=== PATIENT | male | born 1970 | race Asian ===

== ENCOUNTER 2025-02-15 23:03 | Emergency (ER) | payer MEDICAID, SELFPAY ==
[2025-02-15 23:08] VITALS: BMI 64.4
[2025-02-15 23:15] VITALS: BP 153/95; PULSE 84; RESP 16; TEMP 36.9; O2SAT 96
--- NOTE | 2025-02-15 23:27 | EDNOTE_ITS ---
Upper Respiratory Inf. RME/HPI General Chief Complaint: Nausea/Vomiting/Diarrhea Stated Complaint: NV FEVER DIZZINESS Time Seen by Provider: 02/15/25 23:22 Arrival date/time: 02/15/25 23:03 RME / HPI RME / HPI Narrative: DR. RICO MAIN ED EVALUATION: 54 y/o male with Hx of Seasonal Allergies presents to ED c/o severe cough and 1 episode of vomiting x approximately 4 hours. Also reports runny nose, headache, backache, and chills. Denies any fever. Aslo i any history of tobacco or alcohol use. Related Data Previous Rx's ?Medication ?Instructions ?Recorded albuterol sulfate 90 mcg/actuation 2 puff inhalation Q ID PRN 02/16/25 aerosol inhaler shortness of breath or wheez ing #6.7 grams Review of Systems Review of Systems Systems Reviewed: All systems reviewed, normal except as documented ED Exam Narrative Physical exam: Generally patient is alert and in no obvious distress, heart regular rate and rhythm, lungs clear to auscultation equal bilaterally, abdomen soft bowel sounds present's and nontender, extremities show no edema, skin is warm pale and dry Course Course Course Narrative: CXR was ordered for determining the etiology of shortness of breath. Quality Measures none Orders Category Date Time Status Bedside COVID-19 Antigen Test NOW Care 02/15/25 23:28 Active Bedside Influenza A&B Antigen Test NOW Care 02/15/25 23:28 Completed XR chest 1V portable Stat Exams 02/15/25 23:28 Taken CBC Stat Lab 02/15/25 23:39 Completed CMP [Comprehensive Metabolic Panel] Stat Lab 02/15/25 23:39 Completed Vital Signs Vital signs: Vital Signs Temperature 98.5 F 02/15/25 23:15 Pulse Rate 84 02/15/25 23:15 Respiratory Rate 16 02/15/25 23:15 Blood Pressure 153/95 H 02/15/25 23:15 Pulse Oximetry (%) 96 02/15/25 23:15 Oxygen Delivery Method Room Air 02/15/25 23:15 Upper Respiratory Infection MDM Narrative MDM Narrative:: Scribe Attestation: Annabel Zelaya am scribing for and in the presence of Dr. Rico. Provider Notation: Although this document has been carefully reviewed, there may still be some phonetic and other typographical errors. These errors are purely grammatical due to imperfections in the software program and should not be construed in any way to compromise the substance of the patient's medical care during this visit. I interpreted all labs. There is no significant abnormality. COVID was negative. Flu was negative. Chest x-ray is clear. Patient will be given a prescription for albuterol to be taken as prescribed. Follow-up with his doctor. Return to ER as needed or if condition worsens. Patient data External records reviewed:: [facility] previous records (No prior ED records available for review.) Clinical information provided by:: patient and spouse () Social determinants that could affect healthcare access:: none Patient has the following chronic illnesses:: Seasonal Allergies How is presenting disease/condition affected by chronic disease/condition?: exacerbated by Evaluation data The following diagnostics were reviewed and interpreted by me:: radiology exam(s) and other (specify) (COVID-19/Influenza A&B) Lab and/or radiology exams considered but not ordered:: None Interpretation Summary: RADIOLOGY Chest X-Ray: Pending official radiology report. Medications / Prescriptions Medications or Prescriptions considered but not ordered:: None Medication administrations:: See above if any Consultations Consultation(s) initiated? (list below): No Diagnosis Upper Respiratory Differential Diagnosis: upper respiratory infection, viral infection, bronchitis, influenza, pharyngitis and other (COVID-19) Most likely diagnosis given after review of the tests above:: none Admission Indicated Admission indicated?: not indicated Explain why admission is indicated or not indicated:: Patient does not meet admission criteria Admission Request Was there a request for admission?: No Disposition Plan Disposition Plan: Discharge Discharge Attestation Discharge Attestation: The patient and all family members were given an opportunity to ask questions and understood the discharge instructions. Discharge instructions specifically effects, indications for sooner follow up or return to the emergency department, and the expected course of current diagnosis. Patient condition: Stable Discharge Plan Plan Patient Disposition: HOME (Self Care) Prescriptions/Referrals Prescriptions/Med Rec: New albuterol sulfate 90 mcg/actuation HFA aerosol inhaler 2 puff inhalation QID PRN (Reason: shortness of breath or wheezing) Qty: 6.7 0RF Problem List Clinical Impression: Cough Patient/Caregiver Discharge Instructions Education Materials: ED Cough Chronic Uncertain Cause Adult Additional Instructions: Use the inhaler as prescribed. Follow-up with your doctor as needed for further treatment and evaluation. Print Language: Kyrgyz Stand Alone Forms: [employer] Info., Patient Portal Info Letter
--- NOTE | 2025-02-15 23:28 | XR_ITS ---
Examination: AP chest single view Technique one AP portable upright chest single view Date and time: February 16, 2025, 0016 hrs. Indications: Coughing and vomiting beginning 4 hours ago. Findings: Normal heart size. No aspiration pneumonia. The osseous structures are intact Impression: Negative for aspiration pneumonia
[2025-02-15 23:51] LABS: Basophils # (Auto) 0.1 Thou/mm3 (0.0-0.2); Basophils % (Auto) 1 % (0-2.5); Eosinophils # (Auto) 0.5 Thou/mm3 (0.0-0.5); Eosinophils % (Auto) 4 % (0-10); Hematocrit 45.1 % (41.0-53.0); Hemoglobin 15.4 g/dL (13.5-16.0); Immature Granulocytes Auto 0.04 Thou/mm3 (0.00-0.00); Lymphocytes # (Auto) 1.2 Thou/mm3 (1.0-4.8); Lymphocytes % (Auto) 11 % (10-50); Mean Corpuscular HGB Conc 34.1 g/dl (31.0-37.0); Mean Corpuscular Hemoglobin 30.3 pg (25.0-35.0); Mean Corpuscular Volume 89 fL (80-100); Monocytes # (Auto) 0.7 Thou/mm3 (0.0-0.8); Monocytes % (Auto) 6 % (0-12); Neutrophils # (Auto) 8.9 Thou/mm3 (1.8-7.7); Neutrophils % (Auto) 77 % (37-80); Nucleated Red Blood Cell # 0.00 Thou/mm3 (0.00-0.00); Nucleated Red Blood Cell % 0 /100 WBC (0); Platelet Count 266 Thou/mm3 (140-440); RDW Standard Deviation 41.8 fL (35.1-43.9); Red Blood Count 5.08 Miln/mm3 (4.50-5.90); White Blood Count 11.5 Thou/mm3 (3.8-10.6)
[2025-02-16 00:07] LABS: Alanine Aminotransferase 29 U/L (10-49); Albumin, Serum 4.2 gm/dL (3.5-5.0); Albumin/Globulin Ratio 1.7 (1.2-2.2); Alkaline Phosphatase 127 U/L (46-116); Anion Gap 9 (7-16); Aspartate Amino Transferase 22 U/L (0-34); BUN/Creatinine Ratio 9 Ratio (12-20); Bilirubin,Total 0.5 mg/dL (0.3-1.2); Blood Urea Nitrogen 10 mg/dL (9-23); Calcium 9.4 mg/dL (8.3-10.6); Calcium (Corrected) 9.4 mg/dL (8.5-10.1); Carbon Dioxide 26.9 mMol/L (20.0-31.0); Chloride 107 mMol/L (98-107); Creatinine (Component) 1.1 mg/dL (0.6-1.3); Estimated Creatinine Clearance 129.0 mL/min (>60); Globulin 2.5 gm/dL (2.3-3.5); Glucose 174 mg/dL (74-106); Osmolality,Calculated 287 (275-295); Potassium 4.0 mMol/L (3.4-5.1); Sodium 143 mMol/L (136-145); Total Protein 6.7 gm/dL (5.7-8.2); eGFR > 60 See Note
[2025-02-16 01:32] VITALS: BP 142/76; PULSE 86; RESP 18; TEMP 36.8; O2SAT 98
== END 2025-02-16 01:33 | disposition home or self-care (01) ==
LOC: SERX 02-16 01:26
PROVIDERS: Emergency Provider Emergency Medicine; PCP Obstetrics & Gynecology
DX: R05.9 Cough, unspecified (principal); R51.9 Headache, unspecified; R11.10 Vomiting, unspecified
CPT/HCPCS: 36415; 71045; 80053; 85025; 87400; 87811; 99283